=== PATIENT | female | born 1980 | race Caucasian/White ===

== ENCOUNTER 2016-09-30 16:53 | Emergency (ER) | payer BC ==
[2016-09-30 17:24] VITALS: BP 112/60
--- NOTE | 2016-09-30 17:50 | EDM.PDOC ---
ED HPI GENERAL MEDICAL PROBLEM - General Chief Complaint: ENT Problem Stated Complaint: PT HAS SORE THROAT Time Seen by Provider: 09/30/16 17:05 Source of Information: Reports: Patient History Limitations: Reports: No Limitations - History of Present Illness INITIAL COMMENTS - FREE TEXT/NARRATIVE: History of present illness: [36-year-old female comes in complaining of sore throat, indicates that there is then strep pharyngitis in the house and she has had trouble swallowing and/ or drinking.] Review of systems: As per history of present illness and below otherwise all systems reviewed and negative. Past medical history: As per history of present illness and as reviewed below otherwise noncontributory. Surgical history: As per history of present illness and as reviewed below otherwise noncontributory. Social history: No reported history of drug or alcohol abuse. Family history: As per history of present illness and as reviewed below otherwise noncontributory. Physical exam: HEENT: Atraumatic, normocephalic, pupils reactive, negative for conjunctival pallor or scleral icterus, mucous membranes moist with oral pharyngeal erythema without white patchy exudate, throat clear, neck supple, nontender, trachea midline. Lungs: Clear to auscultation, breath sounds equal bilaterally, chest nontender. Heart: S1S2, regular, negative for clicks, rubs, or JVD. Abdomen: Soft, nondistended, nontender. Negative for masses or hepatosplenomegaly. Negative for costovertebral tenderness. Pelvis: Stable nontender. Genitourinary: Deferred. Rectal: Deferred. Extremities: Atraumatic, negative for cords or calf pain. Neurovascular unremarkable. Neuro: Awake, alert, oriented. Cranial nerves II through XII unremarkable. Cerebellum unremarkable. Motor and sensory unremarkable throughout. Exam nonfocal. Diagnostics: [Rapid strep] Therapeutics: [] Impression: [Strep pharyngitis] Plan: [Augmentin] Definitive disposition and diagnosis as appropriate pending reevaluation and review of above. 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: Neurological History: Reports: Seizure, Other (See Below) Other Neuro History: epilepsy Social & Family History - Family History Family Medical History: Noncontributory - Tobacco Use Smoking Status *Q: Never Smoker - Caffeine Use Caffeine Use: Reports: None - Alcohol Use Days Per Week of Alcohol Use: 0 - Recreational Drug Use Recreational Drug Use: No Drug Use in Last 12 Months: No ED ROS ENT - Review of Systems Review Of Systems: See Below (See history of present illness) ED EXAM, ENT - Physical Exam Exam: See Below (See history of present illness) Course - Vital Signs Last Recorded V/S: Last Vital Signs Temp 37.6 C 09/30/16 17:15 Pulse 104 H 09/30/16 17:15 Resp 14 09/30/16 17:15 BP 112/60 09/30/16 17:15 Pulse Ox 95 09/30/16 17:15 Departure - Departure Time of Disposition: 17:54 Disposition: Home, Self-Care 01 Condition: good Clinical Impression: Strep pharyngitis - Discharge Information Forms: ED Department Discharge Additional Instructions: The following information is given to patients seen in the emergency department who are being discharged to home. This information is to outline your options for follow-up care. We provide all patients seen in our emergency department with a follow-up referral. The need for follow-up, as well as the timing and circumstances, are variable depending upon the specifics of your emergency department visit. If you don't have a primary care physician on staff, we will provide you with a referral. We always advise you to contact your personal physician following an emergency department visit to inform them of the circumstance of the visit and for follow-up with them and/or the need for any referrals to a consulting specialist. The emergency department will also refer you to a specialist when appropriate. This referral assures that you have the opportunity for follow-up care with a specialist. All of these measure are taken in an effort to provide you with optimal care, which includes your follow-up. Under all circumstances we always encourage you to contact your private physician who remains a resource for coordinating your care. When calling for follow-up care, please make the office aware that this follow-up is from your recent emergency room visit. If for any reason you are refused follow-up, please contact the [facility] Emergency Department at and asked to speak to the emergency department charge nurse. Take medication as directed Followup with primary care 1-2 days Return to ED as needed as discussed
== END 2016-09-30 18:06 | disposition home or self-care (01) ==
LOC: MW.ED 16:53
DX: J02.0 Streptococcal pharyngitis (principal); Z88.0 Allergy status to penicillin; G40.909 Epilepsy, unspecified, not intractable, without status epilepticus; Z88.1 Allergy status to other antibiotic agents; Z79.899 Other long term (current) drug therapy
CPT/HCPCS: 87880; 99283

== ENCOUNTER 2019-09-08 00:50 | Emergency (ER) | payer BC ==
[2019-09-08 01:05] VITALS: BP 115/81
[2019-09-08] MEDS ORDERED: Pantoprazole 40 MG Tab.CR PO STA (01:57)
[2019-09-08] MEDS ORDERED: Pantoprazole 40 MG Tab.CR PO SCH (02:00)
[2019-09-08 02:31] LABS: BLOOD UREA NITROGEN,BUN 9 mg/dL (7.0-18.0); CARBON DIOXIDE,CO2 29.6 mmol/L (21.0-32.0); CHLORIDE,CL 103 mmol/L (98-107); GLUCOSE RANDOM 100 mg/dL (74-106); LIPASE 124 U/L (73-393); POTASSIUM,K 3.4 mmol/L (3.5-5.1); SODIUM,NA 140 mmol/L (136-145)
--- NOTE | 2019-09-08 02:55 | EDM.PDOC ---
ED HPI GENERAL MEDICAL PROBLEM - General Chief Complaint: General Stated Complaint: SHORTNESS OF BREATH Time Seen by Provider: 09/08/19 01:40 Source of Information: Reports: Patient History Limitations: Reports: No Limitations - History of Present Illness INITIAL COMMENTS - FREE TEXT/NARRATIVE: Patient is a 39-year-old female who is complaining of being short of breath which is been ongoing for the last 2 days. Patient feels short of breath at times at rest and at times with exertion but not consistent with either. Shortness of breath is not worse when she lays down. She denies any cough or any fever or chills. She is having very mild midsternal chest tightness but this is not exertional. She has not been vomiting or having diarrhea. She denies any bloody or tarry stools. Patient is not a cigarette smoker. She denies having previously similar symptoms. She denies any swelling to her ankles or calfs. Patient is negative for PE risk factors other than she has an unusual blood clotting disorder. Duration: Day(s): (two) Location: Reports: Chest Severity: Mild Worsens with: Reports: Movement Associated Symptoms: Reports: No Other Symptoms chest/back Pain Score (Numeric/FACES): 3 - Related Data Allergies Allergy/AdvReac Type Severity Reaction Status Date / Time ampicillin Allergy Anaphylactic Verified 09/08/19 00:55 Shock Penicillins Allergy Rash Verified 09/30/16 17:13 Home Meds: Home Meds . 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: x3 D&C, pt reports MTHFR Musculoskeletal History: Reports: None Neurological History: Reports: Seizure, Other (See Below) Other Neuro History: epilepsy Psychiatric History: Reports: None Endocrine/Metabolic History: Reports: None Hematologic History: Reports: None Immunologic History: Reports: None Dermatologic History: Reports: None - Infectious Disease History Infectious Disease History: Reports: Chicken Pox - Past Surgical History HEENT Surgical History: Reports: Adenoidectomy, Tonsillectomy GI Surgical History: Reports: Appendectomy, Cholecystectomy Social & Family History - Family History Family Medical History: Noncontributory - Tobacco Use Smoking Status *Q: Never Smoker - Caffeine Use Caffeine Use: Reports: None - Recreational Drug Use Recreational Drug Use: No ED ROS GENERAL - Review of Systems Review Of Systems: Comprehensive ROS is negative, except as noted in HPI. ED EXAM, GENERAL - Physical Exam Exam: See Below Exam Limited By: No Limitations General Appearance: Alert, No Apparent Distress Head: Atraumatic, Normocephalic Neck: Normal Inspection, Supple Respiratory/Chest: No Respiratory Distress, Lungs Clear, Normal Breath Sounds Cardiovascular: Regular Rate, Rhythm, No Edema, No JVD GI/Abdominal: Normal Bowel Sounds, Soft, Non-Tender, No Distention Back Exam: Normal Inspection Extremities: Normal Inspection, No Pedal Edema Neurological: Alert, Oriented Psychiatric: Normal Affect Skin Exam: Warm, Dry EKG INTERPRETATION Rhythm: NSR P-Wave: Present QRS: Normal ST-T: Normal Course - Vital Signs Text/Narrative:: All of patient's lab work including d-dimer and troponin and COVID 19 were all negative. Chest x-ray was normal. EKG is unremarkable. Patient did very briefly drop her O2 sat 90 with ambulation but it quickly came back up to the high 90s. Patient was not symptomatic at that time. I am not certain what is causing that. At this point I am recommending she follow-up with her PCP and a possible get a cardiac stress test done. She is to return to emergency department if her symptoms were to worsen. Since she has no cough I am not starting her on an antibiotic. Last Recorded V/S: Last Vital Signs Temp 35.7 C L 09/08/19 00:57 Pulse 90 09/08/19 00:57 Resp 18 09/08/19 00:57 BP 115/81 09/08/19 00:57 Pulse Ox 100 09/08/19 00:57 - Orders/Labs/Meds Labs: Laboratory Tests 09/08/19 09/08/19 09/08/19 Range/Units 02:03 02:03 02:03 WBC 10.26 (4.0-11.0) K/uL RBC 4.39 (4.30-5.90) M/uL Hgb 13.2 (12.0-16.0) g/dL Hct 39.3 (36.0-46.0) % MCV 89.5 (80.0-98.0) fL MCH 30.1 (27.0-32.0) pg MCHC 33.6 (31.0-37.0) g/dL RDW Std Deviation 42.4 (28.0-62.0) fl RDW Coeff of Anand 13 (11.0-15.0) % Plt Count 201 (150-400) K/uL MPV 9.50 (7.40-12.00) fL Neut % (Auto) 71.1 (48.0-80.0) % Lymph % (Auto) 20.0 (16.0-40.0) % Brewster % (Auto) 8.0 (0.0-15.0) % Eos % (Auto) 0.7 (0.0-7.0) % Baso % (Auto) 0.2 (0.0-1.5) % Neut # (Auto) 7.3 H (1.4-5.7) K/uL Lymph # (Auto) 2.1 (0.6-2.4) K/uL Brewster # (Auto) 0.8 (0.0-0.8) K/uL Eos # (Auto) 0.1 (0.0-0.7) K/uL Baso # (Auto) 0.0 (0.0-0.1) K/uL Nucleated RBC % 0.0 /100WBC Nucleated RBCs # 0 K/uL D-Dimer, Quantitative 0.36 (0.0-0.50) mg/L FEU Sodium 140 (136-145) mmol/L Potassium 3.4 L (3.5-5.1) mmol/L Chloride 103 (98-107) mmol/L Carbon Dioxide 29.6 (21.0-32.0) mmol/L BUN 9 (7.0-18.0) mg/dL Creatinine 0.8 (0.6-1.0) mg/dL Est Cr Clr Drug Dosing 82.33 mL/min Estimated GFR (MDRD) > 60.0 ml/min Glucose 100 (74-106) mg/dL Calcium 8.7 (8.5-10.1) mg/dL Total Bilirubin 0.3 (0.2-1.0) mg/dL AST 19 (15-37) IU/L ALT 20 (14-63) IU/L Alkaline Phosphatase 70 (46-116) U/L Troponin I < 0.050 (0.000-0.056) ng/mL Total Protein 6.8 (6.4-8.2) g/dL Albumin 3.6 (3.4-5.0) g/dL Globulin 3.2 (2.6-4.0) g/dL Albumin/Globulin Ratio 1.1 (0.9-1.6) Lipase 124 (73-393) U/L SARS-CoV-2 RNA (RT-PCR) (NEGATIVE) 09/08/19 Range/Units 03:20 WBC (4.0-11.0) K/uL RBC (4.30-5.90) M/uL Hgb (12.0-16.0) g/dL Hct (36.0-46.0) % MCV (80.0-98.0) fL MCH (27.0-32.0) pg MCHC (31.0-37.0) g/dL RDW Std Deviation (28.0-62.0) fl RDW Coeff of Anand (11.0-15.0) % Plt Count (150-400) K/uL MPV (7.40-12.00) fL Neut % (Auto) (48.0-80.0) % Lymph % (Auto) (16.0-40.0) % Brewster % (Auto) (0.0-15.0) % Eos % (Auto) (0.0-7.0) % Baso % (Auto) (0.0-1.5) % Neut # (Auto) (1.4-5.7) K/uL Lymph # (Auto) (0.6-2.4) K/uL Brewster # (Auto) (0.0-0.8) K/uL Eos # (Auto) (0.0-0.7) K/uL Baso # (Auto) (0.0-0.1) K/uL Nucleated RBC % /100WBC Nucleated RBCs # K/uL D-Dimer, Quantitative (0.0-0.50) mg/L FEU Sodium (136-145) mmol/L Potassium (3.5-5.1) mmol/L Chloride (98-107) mmol/L Carbon Dioxide (21.0-32.0) mmol/L BUN (7.0-18.0) mg/dL Creatinine (0.6-1.0) mg/dL Est Cr Clr Drug Dosing mL/min Estimated GFR (MDRD) ml/min Glucose (74-106) mg/dL Calcium (8.5-10.1) mg/dL Total Bilirubin (0.2-1.0) mg/dL AST (15-37) IU/L ALT (14-63) IU/L Alkaline Phosphatase (46-116) U/L Troponin I (0.000-0.056) ng/mL Total Protein (6.4-8.2) g/dL Albumin (3.4-5.0) g/dL Globulin (2.6-4.0) g/dL Albumin/Globulin Ratio (0.9-1.6) Lipase (73-393) U/L SARS-CoV-2 RNA (RT-PCR) NEGATIVE (NEGATIVE) Meds: Medications Discontinued Medications Generic Name Dose Route Start Last Admin Trade Name Freq PRN Reason Stop Dose Admin Pantoprazole Sodium 40 mg 09/08/19 01:57 09/08/19 02:00 Protonix PO 09/08/19 01:58 40 mg NOW STA Administration Departure - Departure Time of Disposition: 04:21 Disposition: Home, Self-Care 01 Condition: Good Clinical Impression: Shortness of breath, Chest pain, atypical - Discharge Information Instructions: Shortness of Breath, Adult, [id number], Nonspecific Chest Pain , Adult, [id number] Referrals: PCP,None [Primary Care Provider] - Forms: ED Department Discharge Additional Instructions: Return to emergency department if symptoms are worse or exertional. Follow-up with PCP to see about possible stress test. Care Plan Goals: The following information is given to patients seen in the emergency department who are being discharged to home. This information is to outline your options for follow-up care. We provide all patients seen in our emergency department with a follow-up referral. The need for follow-up, as well as the timing and circumstances, are variable depending upon the specifics of your emergency department visit. If you don't have a primary care physician on staff, we will provide you with a referral. We always advise you to contact your personal physician following an emergency department visit to inform them of the circumstance of the visit and for follow-up with them and/or the need for any referrals to a consulting specialist. The emergency department will also refer you to a specialist when appropriate. This referral assures that you have the opportunity for follow-up care with a specialist. All of these measure are taken in an effort to provide you with optimal care, which includes your follow-up. Under all circumstances we always encourage you to contact your private physician who remains a resource for coordinating your care. When calling for follow-up care, please make the office aware that this follow-up is from your recent emergency room visit. If for any reason you are refused follow-up, please contact the [facility] Emergency Department at and asked to speak to the emergency department charge nurse. Sepsis Event Note - Evaluation Sepsis Screening Result: No Definite Risk - Focused Exam Vital Signs: Vital Signs Temp Pulse Resp BP Pulse Ox 09/08/19 00:57 35.7 C L 90 18 115/81 100 Date Exam was Performed: 09/08/19 Time Exam was Performed: 04:20
--- NOTE | 2019-09-08 04:07 | CR ---
Indication: Chest pain Technique: Chest 2 views Comparison: None Findings: Cardiovascular and mediastinum: Heart size and vasculature are normal in caliber and appearance. Lungs and pleural spaces: Lungs are clear. No sign of infiltrate or mass. No sign of pleural effusion. No pneumothorax. Bones and soft tissues: Upper abdominal surgical clips. Impression: Unremarkable two view chest. Dictated by Simon Sánchez MD @ Sep 08 2019 4:06AM Signed by Dr. Simon Sánchez @ Sep 08 2019 4:07AM
[2019-09-08 04:32] VITALS: PULSE 83
== END 2019-09-08 04:33 | disposition home or self-care (01) ==
LOC: MW.ED 00:50
DX: R06.02 Shortness of breath (principal); R07.89 Other chest pain; Z88.1 Allergy status to other antibiotic agents; Z88.0 Allergy status to penicillin
CPT/HCPCS: 36415; 71046; 80053; 83690; 84484; 85025; 85379; 87635; 93005; 99285; A9270; U0002

== ENCOUNTER 2020-04-14 09:42 | Emergency (ER) | payer BC ==
--- NOTE | 2020-04-14 09:49 | PCM.SN.2 ---
#1 Interpretation EKG Date: 04/14/20 Time: 09:49 Rhythm: NSR Rate (Beats/Min): 82 Olar: Normal P-Wave: Present QRS: Normal ST-T: Normal QT: Normal TN/PQ Interval: 132 Comparison: NA - No Prior EKG EKG Interpretation Comments: Normal EKG without evidence of ischemia or cardiac dysrhythmia
[2020-04-14] MEDS ORDERED: Sodium Chloride 0.9% 10 ML Syringe FLUSH PRN (09:54)
[2020-04-14] MEDS ORDERED: Sodium Chloride 0.9% 2.5 ML Syringe FLUSH PRN (09:54)
[2020-04-14] MEDS ORDERED: Sodium Chloride 0.9% 1,000 ML IV ONE (10:09)
--- NOTE | 2020-04-14 10:17 | EDM.PDOC ---
ED HPI GENERAL MEDICAL PROBLEM - General Chief Complaint: Abdominal Pain Stated Complaint: UNKNOWN/COLLAPSE Time Seen by Provider: 04/14/20 10:08 Source of Information: Reports: Patient History Limitations: Reports: No Limitations - History of Present Illness INITIAL COMMENTS - FREE TEXT/NARRATIVE: HISTORY AND PHYSICAL: History of present illness: Patient is a 39-year-old female who presents to the emergency room with complaints of near syncope x 3 this morning. She states she woke up this morning and felt fine, on her way to work after dropping her son off at school she felt like she could pass out. She was able to make it to work and said that she "blacked out but was still awake and knew was going on". She denies falling or hitting her head as she still had control of her body. She had the sudden urge to have a bowel movement, associated with crampy abdominal pain and was able to make it to the bathroom where she had diarrhea and several bouts of vomiting. She made it to her office and lay down on the couch where again she had a similar episode where she felt like she was going to pass out and felt like her vision was dark. Again she was aware of what was going on around her. Lasted approximately a minute. Someone from her office had brought her to the emergency room, she had a third episode. She has not ate anything since about 2 PM yesterday afternoon. Patient denies any fever, chills, headache, chest pain, back pain, shortness of breath or cough. Denies any constipation or dysuria. Has not noted any blood in urine or stool. No concern for , has an IUD in place. Review of systems: As per history of present illness and below otherwise all systems reviewed and negative. Past medical history: As per history of present illness and as reviewed below otherwise noncontributory. Surgical history: As per history of present illness and as reviewed below otherwise noncontributory. Social history: See social history for further information Family history: As per history of present illness and as reviewed below otherwise noncontributory. Physical exam: General: Well developed and well nourished 39-year-old female. Alert and orientated x 3. Nontoxic in appearance and in no acute distress. Vital signs are stable and have been reviewed by me. Nursing notes were reviewed. HEENT: Atraumatic, normocephalic, pupils equal and reactive bilaterally, negative for conjunctival pallor or scleral icterus, mucous membranes moist, throat clear, neck supple, nontender, trachea midline. No drooling or trismus noted. No meningeal signs. No hot potato voice noted. Lungs: Clear to auscultation, breath sounds equal bilaterally, chest nontender. Normal work of breathing, no accessory muscles used. Heart: S1S2, regular rate and rhythm without overt murmur Abdomen: Soft, nondistended, nontender. Negative for masses or hepatosplenomegaly. Negative for costovertebral tenderness. Pelvis: Stable nontender. Skin: Intact, warm, dry. No lesions or rashes noted. Hematologic: No petechiae or purpra. Mucosa appropriate color and normal nail bed color and refill. Extremities: Atraumatic, moves all extremities per self without difficulty or deficits, negative for cords or calf pain. Neurovascular unremarkable. Neuro: Awake, alert, oriented. Cranial nerves II through XII unremarkable. Cerebellum unremarkable. Motor and sensory unremarkable throughout. Exam nonfocal. Psychiatric: Mood and affect are appropriate. Normal thought process. Answering questions appropriately. Notes: Reviewing the patient's chart it does appear that she has seen our powerhouse tender Dr. Escoto, for episodes of near syncope. She has had several tests done over the past several months including a stress test, lung perfusion scan, head and neck ultrasound and a Holter monitor along with basic lab work. No abnormal findings were in these results. I have talked with the patient about today's findings, in addition to providing specific details for plan of care. She was offered admission for her near syncope, she declined stating she feels improved and would rather be at home. Reassessment at the time of disposition demonstrates that the patient is in no acute distress. She has had several full workups for her near syncope in the past few months and does have a close relationship with Dr Cuba (powerhouse tender). She is asking for something for generalized abdominal upset, GI cocktail given with good relief. The patient is stable for discharge, counseling was provided and we discussed in great detail signs and symptoms that would prompt them to return to the Emergency Department. Medication, follow up and supportive care measures were reviewed and discussed. Voices understanding and is agreeable to plan of care. Denies any further questions or concerns at this time. Diagnostics: CBC, CMP, Troponin, EKG, CXR Therapeutics: Normal Saline Prescription: None Impression: Near syncope Plan: 1. Today your lab work, EKG, chest x-ray and cardiac work-up was within normal limits. You were offered admission which you declined. If at any time your symptoms should worsen, new symptoms develop or any of the signs and symptoms we discussed should arise please return to the emergency room or call 911 (if needed). We are more than happy to reevaluate you and review the possibility for admission. 2. Please alternate Tylenol and ibuprofen as needed for pain. Make sure you are eating small frequent meals throughout the day to prevent your blood sugar from becoming well. 3. We encourage you to follow up with your primary care provider and/or Dr Garg (powerhouse tender) for re-evaluation and further care/management. Definitive disposition and diagnosis as appropriate pending reevaluation and review of above. abdomen Pain Score (Numeric/FACES): 5 - Related Data Allergies Allergy/AdvReac Type Severity Reaction Status Date / Time ampicillin Allergy Anaphylactic Verified 04/14/20 09:59 Shock Penicillins Allergy Rash Verified 04/14/20 09:59 Home Meds: Home Meds . 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 COURT OFFICE ASSISTANT History: Reports: Other SENIOR COURT OFFICE ASSISTANT History: x3 D&C, pt reports MTHFR Musculoskeletal History: Reports: None Neurological History: Reports: Seizure, Other (See Below) Other Neuro History: epilepsy Psychiatric History: Reports: None Endocrine/Metabolic History: Reports: None Hematologic History: Reports: None Immunologic History: Reports: None Dermatologic History: Reports: None - Infectious Disease History Infectious Disease History: Reports: Chicken Pox - Past Surgical History HEENT Surgical History: Reports: Adenoidectomy, Tonsillectomy GI Surgical History: Reports: Appendectomy, Cholecystectomy Social & Family History - Family History Family Medical History: No Pertinent Family History - Caffeine Use Caffeine Use: Reports: None ED ROS GENERAL - Review of Systems Review Of Systems: Comprehensive ROS is negative, except as noted in HPI. ED EXAM, GI/ABD - Physical Exam Exam: See Below (See dictation) Course - Vital Signs Last Recorded V/S: Last Vital Signs Temp 96.1 F L 04/14/20 10:57 Pulse 78 04/14/20 10:57 Resp 16 04/14/20 10:57 BP 129/84 04/14/20 10:57 Pulse Ox 99 04/14/20 10:57 - Orders/Labs/Meds Orders: Active Orders 24 hr Category Date Time Status EKG Documentation Completion [RC] STAT Care 04/14/20 09:52 Active Chest 1V Frontal [CR] Stat Exams 04/14/20 10:08 Taken UA RFX RADHA AND CULT IF INDIC [URIN] Stat Lab 04/14/20 09:52 Ordered Sodium Chloride 0.9% [Saline Flush] Med 04/14/20 09:54 Active 10 ml FLUSH ASDIRECTED PRN Sodium Chloride 0.9% [Saline Flush] Med 04/14/20 09:54 Active 2.5 ml FLUSH ASDIRECTED PRN Saline Lock Insert [OM.PC] Stat Oth 04/14/20 09:52 Ordered Medication Orders Sodium Chloride (Saline Flush) 10 ml FLUSH ASDIRECTED PRN PRN Reason: Keep Vein Open Last Admin: 04/14/20 10:19 Dose: 10 ml Documented by: MARGARETTE Sodium Chloride (Saline Flush) 2.5 ml FLUSH ASDIRECTED PRN PRN Reason: Keep Vein Open Last Admin: 04/14/20 10:19 Dose: 2.5 ml Documented by: MARGARETTE Labs: Laboratory Tests 04/14/20 04/14/20 04/14/20 Range/Units 09:45 09:45 09:45 WBC 8.43 (4.0-11.0) K/uL RBC 4.58 (4.30-5.90) M/uL Hgb 13.7 (12.0-16.0) g/dL Hct 41.1 (36.0-46.0) % MCV 89.7 (80.0-98.0) fL MCH 29.9 (27.0-32.0) pg MCHC 33.3 (31.0-37.0) g/dL RDW Std Deviation 44.0 (28.0-62.0) fl RDW Coeff of Anand 14 (11.0-15.0) % Plt Count 201 (150-400) K/uL MPV 10.00 (7.40-12.00) fL Neut % (Auto) 64.8 (48.0-80.0) % Lymph % (Auto) 27.4 (16.0-40.0) % [place] % (Auto) 7.0 (0.0-15.0) % Eos % (Auto) 0.6 (0.0-7.0) % Baso % (Auto) 0.2 (0.0-1.5) % Neut # (Auto) 5.5 (1.4-5.7) K/uL Lymph # (Auto) 2.3 (0.6-2.4) K/uL [place] # (Auto) 0.6 (0.0-0.8) K/uL Eos # (Auto) 0.1 (0.0-0.7) K/uL Baso # (Auto) 0.0 (0.0-0.1) K/uL Nucleated RBC % 0.0 /100WBC Nucleated RBCs # 0 K/uL Sodium 139 (136-145) mmol/L Potassium 3.6 (3.5-5.1) mmol/L Chloride 102 (98-107) mmol/L Carbon Dioxide 24.4 (21.0-32.0) mmol/L BUN 11 (7.0-18.0) mg/dL Creatinine 0.8 (0.6-1.0) mg/dL Est Cr Clr Drug Dosing 82.33 mL/min Estimated GFR (MDRD) > 60.0 ml/min Glucose 114 H (74-106) mg/dL Calcium 9.2 (8.5-10.1) mg/dL Total Bilirubin 0.8 (0.2-1.0) mg/dL AST 19 (15-37) IU/L ALT 18 (14-63) IU/L Alkaline Phosphatase 76 (46-116) U/L Troponin I (0.000-0.056) ng/mL Total Protein 7.0 (6.4-8.2) g/dL Albumin 3.7 (3.4-5.0) g/dL Globulin 3.3 (2.6-4.0) g/dL Albumin/Globulin Ratio 1.1 (0.9-1.6) Lipase (73-393) U/L HCG, Qual NEGATIVE (NEG) 04/14/20 Range/Units 09:45 WBC (4.0-11.0) K/uL RBC (4.30-5.90) M/uL Hgb (12.0-16.0) g/dL Hct (36.0-46.0) % MCV (80.0-98.0) fL MCH (27.0-32.0) pg MCHC (31.0-37.0) g/dL RDW Std Deviation (28.0-62.0) fl RDW Coeff of Anand (11.0-15.0) % Plt Count (150-400) K/uL MPV (7.40-12.00) fL Neut % (Auto) (48.0-80.0) % Lymph % (Auto) (16.0-40.0) % [place] % (Auto) (0.0-15.0) % Eos % (Auto) (0.0-7.0) % Baso % (Auto) (0.0-1.5) % Neut # (Auto) (1.4-5.7) K/uL Lymph # (Auto) (0.6-2.4) K/uL [place] # (Auto) (0.0-0.8) K/uL Eos # (Auto) (0.0-0.7) K/uL Baso # (Auto) (0.0-0.1) K/uL Nucleated RBC % /100WBC Nucleated RBCs # K/uL Sodium (136-145) mmol/L Potassium (3.5-5.1) mmol/L Chloride (98-107) mmol/L Carbon Dioxide (21.0-32.0) mmol/L BUN (7.0-18.0) mg/dL Creatinine (0.6-1.0) mg/dL Est Cr Clr Drug Dosing mL/min Estimated GFR (MDRD) ml/min Glucose (74-106) mg/dL Calcium (8.5-10.1) mg/dL Total Bilirubin (0.2-1.0) mg/dL AST (15-37) IU/L ALT (14-63) IU/L Alkaline Phosphatase (46-116) U/L Troponin I < 0.050 (0.000-0.056) ng/mL Total Protein (6.4-8.2) g/dL Albumin (3.4-5.0) g/dL Globulin (2.6-4.0) g/dL Albumin/Globulin Ratio (0.9-1.6) Lipase 77 (73-393) U/L HCG, Qual (NEG) Meds: Medications Generic Name Dose Route Start Last Admin Trade Name Freq PRN Reason Stop Dose Admin Sodium Chloride 10 ml 04/14/20 09:54 04/14/20 10:19 Saline Flush FLUSH 10 ml ASDIRECTED PRN Administration Keep Vein Open Sodium Chloride 2.5 ml 04/14/20 09:54 04/14/20 10:19 Saline Flush FLUSH 2.5 ml ASDIRECTED PRN Administration Keep Vein Open Discontinued Medications Generic Name Dose Route Start Last Admin Trade Name Freq PRN Reason Stop Dose Admin Al Hydroxide/Mg Hydroxide 15 0 ml 04/14/20 11:08 ml/ Metoclopramide HCl 5 mg/ PO 04/14/20 11:09 Lidocaine HCl 5 ml ONETIME ONE Sodium Chloride 1,000 mls @ 999 mls/hr 04/14/20 10:09 04/14/20 10:18 Normal Saline IV 04/14/20 11:09 999 mls/hr STAT ONE Administration Departure - Departure Time of Disposition: 11:06 Disposition: Home, Self-Care 01 Clinical Impression: Near syncope - Discharge Information Instructions: Near-Syncope, [id number] Referrals: PCP,None [Primary Care Provider] - Forms: ED Department Discharge Additional Instructions: The following information is given to patients seen in the emergency department who are being discharged to home. This information is to outline your options for follow-up care. We provide all patients seen in our emergency department with a follow-up referral. The need for follow-up, as well as the timing and circumstances, are variable depending upon the specifics of your emergency department visit. If you don't have a primary care physician on staff, we will provide you with a referral. We always advise you to contact your personal physician following an emergency department visit to inform them of the circumstance of the visit and for follow-up with them and/or the need for any referrals to a consulting specialist. The emergency department will also refer you to a specialist when appropriate. This referral assures that you have the opportunity for follow-up care with a specialist. All of these measure are taken in an effort to provide you with optimal care, which includes your follow-up. Under all circumstances we always encourage you to contact your private physician who remains a resource for coordinating your care. When calling for follow-up care, please make the office aware that this follow-up is from your recent emergency room visit. If for any reason you are refused follow-up, please contact the [facility] Emergency Department at and asked to speak to the emergency department charge nurse. [facility] [address] [id number] [facility] [address] [place] [id number] Thank you for choosing the [facility] emergency department in [place] for your medical needs today. It was a pleasure caring for you. Today you were seen in the emergency department for near syncopal events, abdominal pain and diarrhea. 1. Today your lab work, EKG, chest x-ray and cardiac work-up was within normal limits. You were offered admission which you declined. If at any time your symptoms should worsen, new symptoms develop or any of the signs and symptoms we discussed should arise please return to the emergency room or call 911 (if needed). We are more than happy to reevaluate you and review the possibility for admission. 2. Please alternate Tylenol and ibuprofen as needed for pain. Make sure you are eating small frequent meals throughout the day to prevent your blood sugar from becoming well. 3. We encourage you to follow up with your primary care provider and/or Dr Garg (powerhouse tender) for re-evaluation and further care/management. Sepsis Event Note (ED) - Evaluation Sepsis Screening Result: No Definite Risk - Focused Exam Vital Signs: Vital Signs Temp Pulse Resp BP Pulse Ox 04/14/20 10:57 96.1 F L 78 16 129/84 99 04/14/20 10:26 96.6 F L 71 16 117/68 99 04/14/20 09:50 96.5 F L 83 16 116/74 100 - My Orders Last 24 Hours: My Active Orders 04/14/20 10:08 Chest 1V Frontal [CR] Stat - Assessment/Plan Last 24 Hours: My Active Orders 04/14/20 10:08 Chest 1V Frontal [CR] Stat
[2020-04-14 10:32] LABS: BLOOD UREA NITROGEN,BUN 11 mg/dL (7.0-18.0); CARBON DIOXIDE,CO2 24.4 mmol/L (21.0-32.0); CHLORIDE,CL 102 mmol/L (98-107); GLUCOSE RANDOM 114 mg/dL (74-106); POTASSIUM,K 3.6 mmol/L (3.5-5.1); SODIUM,NA 139 mmol/L (136-145)
[2020-04-14 10:34] LABS: LIPASE 77 U/L (73-393)
[2020-04-14] MEDS ORDERED: Alum Hydrox/Mag Hydrox/Simeth 15 ML, Metoclopramide 5 MG, Lidocaine 2% 5 ML PO ONE ×3 (11:08)
--- NOTE | 2020-04-14 11:23 | CR ---
INDICATION: Pain and dyspnea COMPARISON: September 16, 2019 TECHNIQUE: Single-view chest radiograph FINDINGS: TUBES AND LINES: None. HEART AND MEDIASTINUM: The heart size is normal. The mediastinal contour appears normal for patient age. LUNGS AND PLEURAL SPACES: The lungs appear normal.The pleural spaces are unremarkable. OSSEOUS STRUCTURES: Age-appropriate appearance. No acute focal finding. IMPRESSION: No evidence of active pulmonary disease. Dictated by Blair Reveles MD @ Apr 14 2020 11:19AM Signed by Dr. Blair Reveles @ Apr 14 2020 11:21AM
[2020-04-14 12:06] VITALS: BP 106/68; PULSE 84
== END 2020-04-14 12:07 | disposition home or self-care (01) ==
LOC: MW.ED 09:42
DX: R55 Syncope and collapse (principal); G40.909 Epilepsy, unspecified, not intractable, without status epilepticus; Z88.1 Allergy status to other antibiotic agents; Z88.0 Allergy status to penicillin
CPT/HCPCS: 36415; 71045; 80053; 81003; 83690; 84484; 84703; 85025; 93005; 99284; A9270; J7030; 93010; 99283

== ENCOUNTER 2020-08-11 08:55 | Day surgery (SDC) | payer BC ==
[~2020-08-11 08:55] MED LIST: Lactated Ringers 1,000 ML IV SCH; Sodium Chloride 0.9% 10 ML SDV IV PRN; Sodium Chloride 0.9% 10 ML Syringe FLUSH PRN; Sodium Chloride 0.9% 2.5 ML Syringe FLUSH PRN
[2020-08-11] MEDS ORDERED: Propofol 200 MG/20 ML SDV ONE ×2 (09:09→12:27)
[2020-08-11] MEDS ORDERED: Midazolam 1 MG/ML 2 ML SDV ONE (09:09)
[2020-08-11] MEDS ORDERED: fentaNYL 100 MCG/2 ML SDV ONE (09:09)
--- NOTE | 2020-08-11 11:07 | PCM.PREANE ---
Preanesthetic Assessment - Anesthesia/Transfusion/Family Hx Anesthesia History: Prior Anesthesia Without Reaction Other Type of Anesthesia Reaction Comment: HX N/V POST ANESTHESIA Family History of Anesthesia Reaction: No Transfusion History: No Prior Transfusion(s) - Review of Systems General: No Symptoms Pulmonary: No Symptoms Cardiovascular: No Symptoms Gastrointestinal: No Symptoms Neurological: No Symptoms Other: Reports: None - Physical Assessment NPO Status Date: 08/11/20 NPO Status Time: 00:05 Vital Signs: Last Vital Signs Temp 98.1 F 08/11/20 09:41 Pulse 72 08/11/20 09:41 Resp 16 08/11/20 09:41 BP 130/67 08/11/20 09:41 Pulse Ox 98 08/11/20 09:41 Height: 5 ft 4 in Weight: 216 lb ASA Class: 2 Mental Status: Alert & Oriented x3 Airway Class: Mallampati = 2 Dentition: Reports: Normal Dentition ROM/Head Extension: Full Lungs: Clear to Auscultation, Normal Respiratory Effort Cardiovascular: Regular Rate, Regular Rhythm - Lab Values: Laboratory Last Values Urine HCG, Qual NEGATIVE (NEGATIVE) 08/11/20 09:13 - Allergies Allergies/Adverse Reactions: Allergies Allergy/AdvReac Type Severity Reaction Status Date / Time ampicillin Allergy Anaphylactic Verified 08/11/20 09:39 Shock Penicillins Allergy Rash Verified 08/11/20 09:39 - Acknowledgements Anesthesia Type Planned: General Anesthesia Pt an Appropriate Candidate for the Planned Anesthesia: Yes Alternatives and Risks of Anesthesia Discussed w Pt/Guardian: Yes Pt/Guardian Understands and Agrees with Anesthesia Plan: Yes Additional Comments: npo after mn seizure hx - pt passed out and was rigid on the floor after arriving home 2 days post cpr performed and revived - abnormal EEG and was on placed on antiseizure rx for 5 years this med was gradually tapered and dc'd 2 years ago - has been seizure free since then anxiety depression obesity tob none etoh rare She has a clotting disorder called MTHFR - She had had multiple 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 no hx dvt during her last was on levonox prophylaxis not on any an tiplatelet drugs now she has been told to start antiplatelet drugs starting at [facility] par no questions PreAnesthesia Questionnaire HEENT History: Reports: Impaired Vision, Other (See Below) Other HEENT History: wears glasses/contacts Cardiovascular History: Reports: Other (See Below) Other Cardiovascular History: "leaky valve" Respiratory History: Reports: Other (See Below) Other Respiratory History: "I snore & have had home sleep study which was OK and did not need further testing" Gastrointestinal History: Reports: Colon Polyp Other Gastrointestinal History: alternate diarrhea & constipation Genitourinary History: Reports: None 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: Reports: , Spontaneous Musculoskeletal History: Reports: None Neurological History: Reports: Seizure, Other (See Below) Other Neuro History: diagnosed with epilepsy in 2012, on meds x 5 years, have been off meds for 2 years Psychiatric History: Reports: Anxiety, Depression, PTSD Endocrine/Metabolic History: Reports: Obesity/BMI 30+ Hematologic History: Reports: None Immunologic History: Reports: None Oncologic (Cancer) History: Reports: None Dermatologic History: Reports: None - Infectious Disease History Infectious Disease History: Reports: Chicken Pox, Other (See Below) Other Infectious Disease History: COVID 03/14/2020 - Past Surgical History Head Surgeries/Procedures: Reports: None HEENT Surgical History: Reports: Adenoidectomy, Tonsillectomy Cardiovascular Surgical History: Reports: None Respiratory Surgical History: Reports: None GI Surgical History: Reports: Appendectomy, Cholecystectomy, Colonoscopy Female Surgical History: Reports: D&C Endocrine Surgical History: Reports: None Neurological Surgical History: Reports: None Musculoskeletal Surgical History: Reports: None Oncologic Surgical History: Reports: None Dermatological Surgical History: Reports: None - SUBSTANCE USE Tobacco Use Status *Q: Never Tobacco User - HOME MEDS Home Medications: Home Meds Ascorbic Acid [Vitamin C] 1 tab.chew CHEW DAILY 08/09/20 [History] Cholecalciferol (Vitamin D3) [Vitamin D3] 1 tab.chew CHEW DAILY 08/09/20 [History] Cyanocobalamin (Vitamin B12) [Vitamin B12] 100 mcg PO DAILY 08/09/20 [History] Phentermine/Topiramate [Qsymia 3.75 mg-23 mg Capsule] 1 tab PO DAILY 08/09/20 [History] 168/Iron/Folic/Omega3 [One-A-Day -1 Softgel] 1 tab PO DAILY 08/09/20 [History] - CURRENT (IN HOUSE) MEDS Current Meds: Current Medications Lactated Ringer's (Ringers, Lactated) 1,000 mls @ 125 mls/hr IV ASDIRECTED NILESH Last Admin: 08/11/20 09:38 Dose: 125 mls/hr Documented by: Sodium Chloride (Sodium Chloride 0.9% 10 Ml Syringe) 10 ml FLUSH ASDIRECTED PRN PRN Reason: Keep Vein Open Sodium Chloride (Sodium Chloride 0.9% 2.5 Ml Syringe) 2.5 ml FLUSH ASDIRECTED PRN PRN Reason: Keep Vein Open Sodium Chloride (Sodium Chloride 0.9% 10 Ml Syringe) 10 ml FLUSH ASDIRECTED PRN PRN Reason: Keep Vein Open Sodium Chloride (Sodium Chloride 0.9% 2.5 Ml Syringe) 2.5 ml FLUSH ASDIRECTED PRN PRN Reason: Keep Vein Open Sodium Chloride (Sodium Chloride 0.9% 10 Ml Sdv) 10 ml IV ASDIRECTED PRN PRN Reason: IV Use Discontinued Medications Fentanyl (Fentanyl 100 Mcg/2 Ml Sdv) Confirm Administered Dose 100 mcg .ROUTE .STK-MED ONE Stop: 08/11/20 09:10 Midazolam HCl (Midazolam 1 Mg/Ml 2 Ml Sdv) Confirm Administered Dose 2 mg .ROUTE .STK-MED ONE Stop: 08/11/20 09:10 Propofol (Propofol 200 Mg/20 Ml Sdv) Confirm Administered Dose 200 mg .ROUTE .STK-MED ONE Stop: 08/11/20 09:10
--- NOTE | 2020-08-11 12:46 | PCM.OPNOTE ---
- General Post-Op/Procedure Note Date of Surgery/Procedure: 08/11/20 Operative Procedure(s): Diagnostic Colonoscopy with biopsy and polypectomy Findings: Small sessile distal sigmoid colon polyp. Normal appearing colonic mucosa. Random colon biopsies taken throughout. Pre Op Diagnosis: History of colon polyps, chronic diarrhea Post-Op Diagnosis: Sigmoid colon polyp, chronic diarrhea [place] [facility] [place]geon: Suze Burgess Condition: Good
--- NOTE | 2020-08-11 13:09 | PCM48HPAN ---
Post Anesthesia Note - EVALUATION WITHIN 48HRS OF ANESTHETIC Vital Signs in Normal Range: Yes Patient Participated in Evaluation: Yes Respiratory Function Stable: Yes Airway Patent: Yes Cardiovascular Function Stable: Yes Hydration Status Stable: Yes Pain Control Satisfactory: Yes Nausea and Vomiting Control Satisfactory: Yes Mental Status Recovered: Yes Vital Signs: Last Vital Signs Temp 98.1 F 08/11/20 09:41 Pulse 75 08/11/20 12:48 Resp 13 08/11/20 12:48 BP 120/69 08/11/20 12:48 Pulse Ox 100 08/11/20 12:48
--- NOTE | 2020-08-11 13:09 | PCM.POSTAN ---
POST ANESTHESIA ASSESSMENT - MENTAL STATUS Mental Status: Alert, Oriented - VITAL SIGNS Vital Signs: Last Vital Signs Temp 98.1 F 08/11/20 09:41 Pulse 75 08/11/20 12:48 Resp 13 08/11/20 12:48 BP 120/69 08/11/20 12:48 Pulse Ox 100 08/11/20 12:48 - RESPIRATORY Respiratory Status: Respiratory Rate WNL, Airway Patent, O2 Saturation Stable - CARDIOVASCULAR CV Status: Pulse Rate WNL, Blood Pressure Stable - GASTROINTESTINAL GI Status: No Symptoms - POST OP HYDRATION Hydration Status: Adequate & Stable
[2020-08-11 15:04] VITALS: BP 121/70; PULSE 77
--- NOTE | 2020-08-11 19:54 | OR ---
SURGEON: SUZE BURGESS MD DATE OF PROCEDURE: 08/11/2020 PREOPERATIVE DIAGNOSES: 1. History of colon polyps. 2. Chronic diarrhea. POSTOPERATIVE DIAGNOSES: 1. Sigmoid colon polyp. 2. Chronic diarrhea. PROCEDURE PERFORMED: Diagnostic colonoscopy with polypectomy and biopsy. PRIMARY SURGEON: Suze Burgess MD ANESTHESIA: MAC. INSTRUMENT USED: Olympus colonoscope. EXTENT OF EXAM: To the cecum. PREPARATION: Good. LIMITATIONS: None. INDICATIONS FOR EXAMINATION: The patient is a 40-year-old female who presented to clinic for repeat colonoscopy. She has a history of colon polyps and is in need for repeat exam. The patient has chronic diarrhea which we discussed as well. A decision was made to perform a diagnostic colonoscopy. I will take random biopsies throughout the colon and assess the patient for any recurrent polyps. I explained the procedure, expected perioperative course, and the risks. The patient verbalized understanding and wishes to proceed. PROCEDURE IN DETAIL: The patient was brought to the endoscopy suite and placed in a left lateral decubitus position. A time-out was completed verifying the patient's name, age, date of , allergies, and procedure to be performed. Monitored anesthesia care was induced and continuous oxygen was provided via nasal cannula throughout the procedure. After adequate sedation was achieved, a digital rectal exam was performed. This exam was within normal limits. A well-lubricated colonoscope was inserted in the rectum and advanced under direct visualization to the level of the cecum. The cecum was identified by both visual and anatomic landmarks. A photograph was taken of cecal cap as well as with the scope retroflexed within the cecum. The scope was then fully withdrawn while examining the color, texture, anatomy, and integrity of the mucosa from the cecum to the anal canal. The cecum and terminal ileum appeared normal. Random biopsies were taken throughout the colon. Biopsies were taken from the ascending colon, transverse colon, descending colon, sigmoid colon, and rectum. In the distal sigmoid colon, the patient was found to have a small sessile polyp. This was removed in piecemeal fashion using a cold biopsy forceps. The scope was brought into the rectum and retroflexed to allow visualization of the anal canal opening. This appeared normal and a photograph was taken. The scope was then straightened out and fully withdrawn. The cecum to anus time was 13 minutes. The patient tolerated the procedure well and was transferred to the PACU in stable condition. ENDOSCOPIC DIAGNOSES: 1. Sigmoid colon polyp. 2. Chronic diarrhea. RECOMMENDATIONS: Follow up in clinic in 2 weeks. SHANTI NICHOLSON /[id number]
== END 2020-08-11 13:21 | disposition home or self-care (01) ==
LOC: MW.SDS 08:55
PROVIDERS: ATTEND Surgery
DX: D12.5 Benign neoplasm of sigmoid colon (principal); K52.9 Noninfective gastroenteritis and colitis, unspecified; E03.9 Hypothyroidism, unspecified; E66.9 Obesity, unspecified; Z68.37 Body mass index [BMI] 37.0-37.9, adult; Z88.8 Allergy status to other drugs, medicaments and biological substances; Z98.890 Other specified postprocedural states; Z88.0 Allergy status to penicillin
CPT/HCPCS: 45380; 81025; 88305; J2250; J2704; J3010; J7120; 00811

== ENCOUNTER 2021-12-05 10:49 | Day surgery (SDC) | payer BC, OTHER ==
[~2021-12-05 10:49] MED LIST changes: -Sodium Chloride 0.9% 10 ML SDV IV PRN; +Sodium Chloride 0.9% 20 ML SDV IV PRN
[2021-12-05] MEDS ORDERED: fentaNYL 100 MCG/2 ML SDV ONE (11:52)
[2021-12-05] MEDS ORDERED: Propofol 200 MG/20 ML SDV ONE (11:52)
[2021-12-05] MEDS ORDERED: Metoclopramide 10 MG/2 ML SDV ONE (11:57)
[2021-12-05 12:50] VITALS: BP 125/69; PULSE 76
== END 2021-12-05 12:48 | disposition home or self-care (01) ==
LOC: MW.SDS 10:49
PROVIDERS: ATTEND Surgery
DX: K31.7 Polyp of stomach and duodenum (principal); K21.9 Gastro-esophageal reflux disease without esophagitis; K44.9 Diaphragmatic hernia without obstruction or gangrene; R63.5 Abnormal weight gain; F41.9 Anxiety disorder, unspecified; F32.A Depression, unspecified; E03.9 Hypothyroidism, unspecified; K58.9 Irritable bowel syndrome, unspecified; Z88.0 Allergy status to penicillin; Z79.83 Long term (current) use of bisphosphonates; Z79.1 Long term (current) use of non-steroidal anti-inflammatories (NSAID); Z79.810 Long term (current) use of selective estrogen receptor modulators (SERMs); Z79.899 Other long term (current) drug therapy; Z90.49 Acquired absence of other specified parts of digestive tract; Z98.890 Other specified postprocedural states; Z68.41 Body mass index [BMI] 40.0-44.9, adult; Z86.16 Personal history of COVID-19
CPT/HCPCS: 43239; 81025; J2704; J2765; J3010; J7120; 00731

== ENCOUNTER 2022-01-06 01:01 | Emergency (ER) | payer OTHER ==
[2022-01-06] MEDS ORDERED: Ondansetron 4 MG/2 ML SDV IVPUSH ONE (01:21)
[2022-01-06] MEDS ORDERED: Sodium Chloride 0.9% 1,000 ML IV ONE (01:21)
[2022-01-06 02:10] LABS: CARBON DIOXIDE,CO2 30.1 mmol/L (21.0-32.0)
[2022-01-06] MEDS ORDERED: Potassium Chloride 20 MEQ Tab.ER PO ONE (02:18)
[2022-01-06 02:39] VITALS: BP 123/76; PULSE 82
== END 2022-01-06 02:39 | disposition home or self-care (01) ==
LOC: MW.ED 01:01
DX: R55 Syncope and collapse (principal); N17.9 Acute kidney failure, unspecified; E87.6 Hypokalemia; E66.9 Obesity, unspecified; Z68.41 Body mass index [BMI] 40.0-44.9, adult; Z88.1 Allergy status to other antibiotic agents; Z88.0 Allergy status to penicillin; Z79.899 Other long term (current) drug therapy; Z90.49 Acquired absence of other specified parts of digestive tract; Z20.822 Contact with and (suspected) exposure to COVID-19
CPT/HCPCS: 36415; 80053; 83735; 84703; 85025; 87635; 93005; 99284; A9270; J7030; U0002